=== PATIENT | female | born 2005 | race Caucasian/White ===

== ENCOUNTER 2024-01-05 18:05 | Emergency (ER) | payer BC ==
[~2024-01-05] VITALS: Ht 172.7 cm; Wt 68.2 kg
[2024-01-05 18:11] VITALS: TEMP 98
[2024-01-05 20:22] LABS: URINE APPEARANCE CLOUDY (CLEAR/HAZY); URINE BLOOD 2+ (NEGATIVE); URINE COLOR YELLOW (YELLOW); URINE GLUCOSE NEGATIVE (NEGATIVE); URINE KETONE TRACE (NEGATIVE); URINE NITRATE NEGATIVE (NEGATIVE); URINE PROTEIN(semi-quant) TRACE (NEGATIVE)
[2024-01-05 20:41] LABS: COLLECTION METHOD CLEAN CATCH; MUCOUS PRESENT (NOT PRESENT); URINE BACTERIA OCCASIONAL /hpf (NONE SEEN)
[2024-01-05] MEDS ORDERED: Cefuroxime 250 MG TAB PO ONE (21:00)
[2024-01-05 21:15] VITALS: BP 107/74; PULSE 96
[2024-01-05] MEDS ORDERED: CEFTIN500 MG PO (21:17)
== END 2024-01-05 21:16 | disposition home or self-care (01) ==
LOC: COL.ER 18:05
PROVIDERS: Nurse Practitioner
DX: N89.8 Other specified noninflammatory disorders of vagina (principal); N39.0 Urinary tract infection, site not specified; B96.89 Other specified bacterial agents as the cause of diseases classified elsewhere